=== PATIENT | female | born 1980 | race Caucasian/White ===

== ENCOUNTER 2017-12-25 22:37 | Emergency (ER) | payer BC ==
[~2017-12-25] VITALS: Ht 154.9 cm; Wt 52.3 kg
[~2017-12-25 22:37] MED LIST: NORCO 325 MG-51 TAB PO; NORCO 325 MG-7.1 TAB PO
[2017-12-25 22:50] VITALS: TEMP 97.7
[2017-12-26 00:52] LABS: BASO % 0.3 % (0.0-2.0); EOS % 0.4 % (0-4.0); GRAN # 8.2 (1.4-6.5); GRAN % 76.9 % (42.2-75.2); HEMATOCRIT 38.5 % (37.0-47.0); LYMPH # 1.9 (1.2-3.4); LYMPH % 17.6 % (20.0-51.0); MEAN CELL VOLUME 89 fl (80.0-100.0); MEAN CORPUSCULAR HEMOGLOBIN 30 pg (27.0-31.0); MEAN CORPUSCULAR HGB CONC 34 g/dl (33.0-37.0); MEAN PLATELET VOLUME 9.4 fl (7.4-10.4); MONO # 0.5 (0.1-0.6); MONO % 4.4 % (1.7-9.3); PLATELET COUNT 356 K/mm3 (130-400); RED BLOOD COUNT 4.31 M/mm3 (4.10-5.30); REDCELL DISTRIBUTION WIDTH-CV 12.7 % (11.5-14.5)
[2017-12-26] MEDS ORDERED: BIRTH CONTROL (00:55)
[2017-12-26 01:01] LABS: ALANINE AMINOTRANSFERASE 36 U/L (9-52); ALBUMIN 3.9 gm/dL (3.5-5.0); ALKALINE PHOSPHATASE 62 U/L (50-136); ANION GAP 9 mmol/L (7-16); AST,SGOT 52 U/L (15-37); BILIRUBIN,TOTAL 0.2 mg/dL (0.0-1.0); BLOOD UREA NITROGEN 8 mg/dL (7-17); CALCIUM 9.1 mg/dL (8.4-10.2); CARBON DIOXIDE 24 mmol/L (22-30); CHLORIDE 101 mmol/L (98-107); CREATININE, serum 0.75 mg/dL (0.52-1.25); GLUCOSE 124 mg/dL (74-106); POTASSIUM 4.1 mmol/L (3.4-5.0); SODIUM 135 mmol/L (137-145); TOTAL PROTEIN 8.1 gm/dL (6.4-8.2)
[2017-12-26 01:04] LABS: C-REACTIVE PROTEIN < 0.5 mg/dL (0.0-0.9)
[2017-12-26 01:28] LABS: THYROID STIMULATING HORMONE 0.818 uIU/mL (0.465-4.680)
[2017-12-26 01:43] LABS: COLLECTION METHOD CLEAN CATCH
[2017-12-26 01:48] LABS: PH 7 (5-8); SQUAMOUS EPITHELIAL None Seen /hpf; URINE APPEARANCE Clear; URINE BACTERIA None Seen /hpf; URINE BILIRUBIN Negative (NEGATIVE); URINE BLOOD Negative (NEGATIVE); URINE COLOR Straw; URINE GLUCOSE Negative (NEGATIVE); URINE KETONE Negative (NEGATIVE); URINE LEUKOCYTE ESTERASE Negative (NEGATIVE); URINE NITRATE Negative (NEGATIVE); URINE PROTEIN(semi-quant) Negative (NEGATIVE); URINE RBC 0-2 /hpf; URINE UROBILINOGEN Negative (NEGATIVE)
[2017-12-26 02:47] VITALS: BP 137/49; PULSE 68
== END 2017-12-26 02:47 | disposition home or self-care (01) ==
LOC: COL.ER 22:37
PROVIDERS: Nurse Practitioner
DX: R51 Headache (principal); Z90.49 Acquired absence of other specified parts of digestive tract; F17.210 Nicotine dependence, cigarettes, uncomplicated; Z98.890 Other specified postprocedural states
CPT/HCPCS: J1200; J1885; J2060; J2550; J2765; J7030

== ENCOUNTER 2018-03-19 10:46 | Day surgery (SDC) | payer BC ==
[~2018-03-19] VITALS: Ht 155 cm; Wt 61.3 kg
[2018-03-19] VITALS (13 sets, daily range): BP systolic 116–157; BP diastolic 70–97; PULSE 55–71; TEMP 98.6
[~2018-03-19 10:46] MED LIST changes: +SPRINTEC 35 MCG1 TAB PO
[2018-03-19 11:14] LABS: HEMOGLOBIN 12.3 g/dl (12.5-16.0); MEAN CELL VOLUME 90 fl (80.0-100.0); MEAN CORPUSCULAR HEMOGLOBIN 30 pg (27.0-31.0); MEAN CORPUSCULAR HGB CONC 34 g/dl (33.0-37.0); MEAN PLATELET VOLUME 9.3 fl (7.4-10.4); PLATELET COUNT 356 K/mm3 (130-400); RED BLOOD COUNT 4.06 M/mm3 (4.10-5.30); REDCELL DISTRIBUTION WIDTH-CV 13.4 % (11.5-14.5)
[2018-03-19 11:16] LABS: HEMATOCRIT 36.6 % (37.0-47.0)
[2018-03-19 11:19] LABS: PROTHROMBIN TIME 11.8 SECONDS (9.7-12.8)
[2018-03-19] MEDS ORDERED: TOPROL XL 25MG25 MG PO (11:25)
[2018-03-19] MEDS ORDERED: ASPIRIN 32325 MG/TAB PO (11:26)
[2018-03-19] MEDS ORDERED: LIPITOR20 MG PO (11:26)
[2018-03-19 11:34] LABS: CALCIUM 8.9 mg/dL (8.4-10.2); CREATININE, serum 0.65 mg/dL (0.52-1.25); POTASSIUM 4.1 mmol/L (3.4-5.0)
[2018-03-19] MEDS ORDERED: IMDUR 30MG30 MG/TAB PO (18:07)
[2018-03-19] MEDS ORDERED: NITROSTAT0.4 MG/TAB SL (18:42)
== END 2018-03-19 20:22 | disposition home or self-care (01) ==
LOC: COL.CAR 10:46
PROVIDERS: Internal Medicine Cardiovascular Disease
DX: I25.10 Atherosclerotic heart disease of native coronary artery without angina pectoris (principal); R94.39 Abnormal result of other cardiovascular function study; I10 Essential (primary) hypertension; E78.5 Hyperlipidemia, unspecified; F17.210 Nicotine dependence, cigarettes, uncomplicated; I49.9 Cardiac arrhythmia, unspecified; Z79.82 Long term (current) use of aspirin; Z90.49 Acquired absence of other specified parts of digestive tract; Z82.49 Family history of ischemic heart disease and other diseases of the circulatory system
CPT/HCPCS: C1769; C1887; J1644; J2250; J3010; Q9967

== ENCOUNTER 2019-04-02 20:42 | Emergency (ER) | payer SELFPAY ==
[~2019-04-02] VITALS: Ht 154.9 cm; Wt 54.5 kg
[~2019-04-02 20:42] MED LIST changes: +ASPIRIN 32325 MG/TAB PO; +IMDUR 30MG30 MG/TAB PO; +LIPITOR20 MG PO; +NITROSTAT0.4 MG/TAB SL; +TOPROL XL 25MG25 MG PO
[2019-04-02 20:58] VITALS: TEMP 98.7
[2019-04-02 22:35] LABS: HEMOGLOBIN 12.3 g/dl (12.5-16.0); MEAN CELL VOLUME 87 fl (80.0-100.0); MEAN CORPUSCULAR HEMOGLOBIN 29 pg (27.0-31.0); MEAN CORPUSCULAR HGB CONC 34 g/dl (33.0-37.0); MEAN PLATELET VOLUME 9.5 fl (7.4-10.4); PLATELET COUNT 238 K/mm3 (130-400); RED BLOOD COUNT 4.18 M/mm3 (4.10-5.30); REDCELL DISTRIBUTION WIDTH-CV 12.5 % (11.5-14.5)
[2019-04-02 22:37] LABS: HEMATOCRIT 36.2 % (37.0-47.0)
[2019-04-02 22:41] LABS: PROTHROMBIN TIME 12.2 SECONDS (9.7-12.8)
[2019-04-02 22:43] LABS: ALANINE AMINOTRANSFERASE 89 U/L (9-52); ALBUMIN 3.2 gm/dL (3.5-5.0); ALKALINE PHOSPHATASE 209 U/L (50-136); ANION GAP 10 mmol/L (7-16); AST,SGOT 86 U/L (15-37); BILIRUBIN,TOTAL 0.5 mg/dL (0.0-1.0); BLOOD UREA NITROGEN 5 mg/dL (7-17); CALCIUM 7.9 mg/dL (8.4-10.2); CARBON DIOXIDE 24 mmol/L (22-30); CHLORIDE 96 mmol/L (98-107); CREATININE, serum 0.59 (0.52-1.25); GLUCOSE 93 mg/dL (74-106); LIPASE 36 U/L (23-300); POTASSIUM 3.9 mmol/L (3.4-5.0); SODIUM 129 mmol/L (137-145); TOTAL PROTEIN 6.7 gm/dL (6.4-8.2)
[2019-04-02 22:57] LABS: BASOPHIL 1 % (0-2); LYMPHOCYTE 23 % (20.0-51.0); NEUTROPHILS 62 % (42.0-75.2); PLATELET ESTIMATE NORMAL (NORMAL)
[2019-04-02 23:00] LABS: TROPONIN-I < 0.012 ng/mL (0.000-0.035)
[2019-04-03 01:53] LABS: ANION GAP 5 mmol/L (7-16); BLOOD UREA NITROGEN 4 mg/dL (7-17); CALCIUM 7.2 mg/dL (8.4-10.2); CARBON DIOXIDE 24 mmol/L (22-30); CHLORIDE 104 mmol/L (98-107); CREATININE, serum 0.63 (0.52-1.25); GLUCOSE 88 mg/dL (74-106); POTASSIUM 3.7 mmol/L (3.4-5.0); SODIUM 133 mmol/L (137-145)
[2019-04-03 02:06] LABS: TROPONIN-I 3 HR POST INITIAL < 0.012 ng/mL (0.000-0.034)
[2019-04-03 03:32] VITALS: BP 108/72; PULSE 85
== END 2019-04-03 03:31 | disposition home or self-care (01) ==
LOC: COL.ER 20:42
PROVIDERS: Emergency Medicine
DX: R10.13 Epigastric pain (principal); M25.511 Pain in right shoulder; R51 Headache; I25.10 Atherosclerotic heart disease of native coronary artery without angina pectoris; E78.5 Hyperlipidemia, unspecified; I10 Essential (primary) hypertension; F17.210 Nicotine dependence, cigarettes, uncomplicated; Z90.49 Acquired absence of other specified parts of digestive tract; Z79.82 Long term (current) use of aspirin
CPT/HCPCS: C9113; J1170; J2060; J2405; J3010; J7030; Q9967